=== PATIENT | male | born 1990 | race Caucasian/White ===

== ENCOUNTER 2017-03-29 01:20 | Emergency (ER) | payer BC, OTHER ==
[~2017-03-29] VITALS: Ht 188 cm; Wt 96.6 kg
[~2017-03-29 01:20] MED LIST: ACET325T9 PO; DIAZ10TA PO; HYDR-971 PO
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
[2017-03-29 01:53] LABS: BASO # 0.1 x10^3/uL (0.0-0.2); BASO % 1 % (0-3); EOS # 0.3 x10^3/uL (0.0-0.7); EOS % 4 % (0-3); HEMATOCRIT 45.7 % (39.0-53.0); HEMOGLOBIN 15.6 g/dL (13.0-17.5); LYMPH % 34 % (24-48); MEAN CORPUSCULAR HEMOGLOBIN 30 pg (25-35); MEAN CORPUSCULAR HGB CONC 34 g/dL (31-37); MEAN CORPUSCULAR VOLUME 88 fL (79-100); MONO # 0.9 x10^3/uL (0.0-1.1); MONO % 10 % (0-9); NEUT # 4.7 x10^3uL (1.8-7.7); NEUT % 52 % (31-73); PLATELET COUNT 234 x10^3/uL (140-400); RED BLOOD COUNT 5.22 x10^6/uL (4.30-5.70); RED CELL DISTRIBUTION WIDTH 13.6 % (11.5-14.5)
--- NOTE | 2017-03-29 01:56 | EKG ---
[address] [address] Test Date: 2017-03-29 Test Time: 01:45:51 Pat Name: RAMON MARES Department: Room: Gender: M [employer]: : 1990 Requested By: YAEL THORNTON Order Number: [id number] Reading MD: Boo Lang Measurements Intervals [place] Rate: 76 P: 54 SD: 130 QRS: 84 QRSD: 86 T: 16 QT: 364 QTc: 409 Interpretive Statements SINUS RHYTHM NON-SPECIFIC ST/T CHANGES Electronically Signed On 03-29-2017 10:25:10 CDT by Boo Lang
[2017-03-29 02:00] LABS: CALCIUM 8.7 mg/dL (8.5-10.1); CREATININE 1.1 mg/dL (0.7-1.3); GFR 82.2
[2017-03-29] MEDS ORDERED: IV RINGERS SOLUTION,LACTATED 1,000 ML IV SCH (02:00)
[2017-03-29 02:01] LABS: BILIRUBIN,URINE NEG (NEG); CLARITY,URINE CLEAR; COLOR,URINE YELLOW; GLUCOSE,URINE NEG (NEG)
[2017-03-29 02:02] LABS: BACTERIA,URINE 0 /HPF (0-FEW); NITRITE,URINE NEG (NEG); RBC,URINE 0 /HPF (0-2); SQUAMOUS EPITHELIAL CELL,UR FEW /LPF; UROBILINOGEN,URINE 1 mg/dL (0.2 mg/dL); WBC,URINE OCC /HPF (0-4)
[2017-03-29 02:04] LABS: POTASSIUM 2.9 mmol/L (3.5-5.1); SALIC 0.4 mg/dL (2.8-20.0)
[2017-03-29 02:06] LABS: AMPHETAMINE/METHAMPHETAMINE NEG (NEG); BARBITURATES NEG (NEG); BENZODIAZEPINES NEG (NEG); CANNABINOIDS NEG (NEG); COCAINE NEG (NEG); METHADONE NEG (NEG); OPIATES NEG (NEG); PHENCYCLIDINE NEG (NEG)
[2017-03-29 02:26] LABS: ACETAMIN < 2.0 mcg/mL (10-30); ETHANOL < 10 mg/dL (0-10)
[2017-03-29] MEDS ORDERED: POTASSIUM CHLORIDE 20 MEQ/15 ML ORAL LIQUID. PO ONE (02:30)
[2017-03-29] MEDS ORDERED: lamoTRIgine 25 MG TABLET. ONE (06:22)
[2017-03-29] MEDS ORDERED: lamoTRIgine 25 MG TABLET. PO ONE (07:00)
[2017-03-29 08:44] VITALS: BP 127/67
--- NOTE | 2017-03-29 09:07 | RAD ---
Right hand, 3 views, 03/29/2017: History: Abrasions, pain No fracture or dislocation is identified. IMPRESSION: No acute bony abnormality is detected.
[2017-03-29] MEDS ORDERED: LORazepam 1 MG TABLET PO ONE (09:45)
[2017-03-29] MEDS ORDERED: POTASSIUM CHLORIDE 20 MEQ/15 ML ORAL LIQUID. PEG ONE (09:45)
== END 2017-03-29 09:40 ==
LOC: ER 01:20
DX: F32.9 Major depressive disorder, single episode, unspecified (principal); R45.851 Suicidal ideations; E87.6 Hypokalemia; S60.221A Contusion of right hand, initial encounter; X58.XXXA Exposure to other specified factors, initial encounter; Y93.89 Activity, other specified; Y99.8 Other external cause status; Y92.89 Other specified places as the place of occurrence of the external cause
CPT/HCPCS: 36415; 73130; 80048; 80307; 81001; 83735; 84484; 85025; 85610; 85730; 93005; 96360; 96361; 99285; G0480; J7120; G0479

== ENCOUNTER 2019-01-04 04:26 | Emergency (ER) | payer OTHER, BC ==
[~2019-01-04] VITALS: Ht 188 cm; Wt 107.0 kg
[~2019-01-04 04:26] MED LIST changes: +HYDR-3165 PO; -HYDR-971 PO
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
[2019-01-04] MEDS ORDERED: BACI1PAC16 TP (04:53)
[2019-01-04] MEDS ORDERED: AMOX1TAB61 PO (04:53)
[2019-01-04] MEDS ORDERED: TETANUS AND DIPHTHERIA TOX/PF 0.5 ML VIAL. VAX IM ONE (05:30)
[2019-01-04] MEDS ORDERED: BACITRACIN ZINC TOPICAL OINT PACKET. TP ONE (05:30)
[2019-01-04] MEDS ORDERED: IV NORMAL SALINE 50ML 50 ML ONE (05:33)
[2019-01-04] MEDS ORDERED: cefTRIAXone SODIUM 1 GM VIAL ONE (05:33)
[2019-01-04 05:38] LABS: BASO # 0.1 x10^3/uL (0.0-0.2); BASO % 1 % (0-3); EOS # 0.5 x10^3/uL (0.0-0.7); EOS % 5 % (0-3); HEMATOCRIT 44.5 % (39.0-53.0); HEMOGLOBIN 15.2 g/dL (13.0-17.5); LYMPH # 1.9 x10^3/uL (1.0-4.8); LYMPH % 19 % (24-48); MEAN CORPUSCULAR HEMOGLOBIN 30 pg (25-35); MEAN CORPUSCULAR HGB CONC 34 g/dL (31-37); MEAN CORPUSCULAR VOLUME 88 fL (79-100); MONO # 0.7 x10^3/uL (0.0-1.1); MONO % 7 % (0-9); NEUT # 6.8 x10^3uL (1.8-7.7); NEUT % 69 % (31-73); PLATELET COUNT 246 x10^3/uL (140-400); RED BLOOD COUNT 5.06 x10^6/uL (4.30-5.70); RED CELL DISTRIBUTION WIDTH 14.2 % (11.5-14.5)
[2019-01-04 05:47] LABS: ALBUMIN 3.9 g/dL (3.4-5.0); ALK PHOS 99 U/L (46-116); ALT (SGPT) 44 U/L (16-63); ANION GAP 9 (6-14); AST (SGOT) 33 U/L (15-37); BLOOD UREA NITROGEN 14 mg/dL (8-26); CARBON DIOXIDE 27 mmol/L (21-32); CHLORIDE 105 mmol/L (98-107); CREATININE 1.1 mg/dL (0.7-1.3); DIRECT BILIRUBIN < 0.1 mg/dL (0.0-0.2); GFR 80.9; GLUCOSE 104 mg/dL (70-99); POTASSIUM 3.9 mmol/L (3.5-5.1); SODIUM 141 mmol/L (136-145); TOTAL BILIRUBIN 0.3 mg/dL (0.2-1.0); TOTAL PROTEIN 7.2 g/dL (6.4-8.2)
[2019-01-04 06:14] VITALS: BP 140/80
== END 2019-01-04 06:00 | disposition home or self-care (01) ==
LOC: ER 04:26
DX: S61.512A Laceration without foreign body of left wrist, initial encounter (principal); Z77.21 Contact with and (suspected) exposure to potentially hazardous body fluids; F32.9 Major depressive disorder, single episode, unspecified; Y04.1XXA Assault by human bite, initial encounter; Y93.89 Activity, other specified; Y92.143 Cell of prison as the place of occurrence of the external cause; Y99.8 Other external cause status
CPT/HCPCS: 36415; 80048; 80076; 82550; 85025; 85610; 85730; 86592; 86703; 86705; 86709; 86803; 87340; 90471; 90714; 96374; 99284; J0696

== ENCOUNTER 2019-01-06 19:12 | Emergency (ER) | payer OTHER, BC ==
[~2019-01-06] VITALS: Ht 188 cm; Wt 104.3 kg
[~2019-01-06 19:12] MED LIST changes: +AMOX1TAB61 PO; +BACI1PAC16 TP
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
[2019-01-06 19:25] VITALS: BP 147/82
== END 2019-01-06 19:48 | disposition home or self-care (01) ==
LOC: ER 19:12
DX: S61.512D Laceration without foreign body of left wrist, subsequent encounter (principal); F32.9 Major depressive disorder, single episode, unspecified; W50.3XXD Accidental bite by another person, subsequent encounter
CPT/HCPCS: 99282

== ENCOUNTER 2019-10-26 22:40 | Emergency (ER) | payer BC, OTHER ==
[~2019-10-26] VITALS: Ht 188 cm; Wt 103.7 kg
--- NOTE | 2019-10-26 22:49 | PHYS DOC ---
Past History Past Medical History: No Pertinent History, Depression, GERD Past Surgical History: No Surgical History Smoking: Cigarettes Alcohol Use: None Drug Use: None Adult General Chief Complaint Chief Complaint: ABDOMINAL PAIN.>.." I had this bad burning in my stomach tonight.. it 's been going on for a while.. 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 Patient states pain is usually worse at night when he lays down. Patient does smoke tobacco. Has not taken excessive NSAIDs. No recent travel outside the [place] area. Has been exposed to his girlfriend who has a viral infection. Patient denies any intake of bad food. History immunosuppression. No history of trauma. Review of Systems Review of Systems Constitutional: Denies fever or chills [] Eyes: Denies change in visual acuity, redness, or eye pain [] HENT: Denies nasal congestion or sore throat [] Respiratory: Denies cough or shortness of breath [] Cardiovascular: No additional information not addressed in HPI [] GI: Complaints of severe epigastric abdominal pain, nausea. Patient denies, vomiting, bloody stools or diarrhea [] : Denies dysuria or hematuria [] Musculoskeletal: Denies back pain or joint pain [] Integument: Denies rash or skin lesions [] Neurologic: Denies headache, focal weakness or sensory changes [] Endocrine: Denies polyuria or polydipsia [] All other systems were reviewed and found to be within normal limits, except as documented in this note. Family History Family History Noncontributory Current Medications Current Medications See nursing for home meds Allergies Allergies Allergies Coded Allergies Type Severity Reaction Last Updated Verified No Known Drug Allergies 05/08/16 No Physical Exam Physical Exam Constitutional: Well developed, well nourished, moderate acute distress, non- toxic appearance. [] HENT: Normocephalic, atraumatic, bilateral external ears normal, oropharynx moist, no oral exudates, nose normal. [] Eyes: PERRLA, EOMI, conjunctiva normal, no discharge. [] Neck: Normal range of motion, no tenderness, supple, no stridor. [] Cardiovascular:Heart rate regular rhythm, no murmur [] Lungs & Thorax: Bilateral breath sounds are apex with scattered wheezes auscultation [] Abdomen: Bowel sounds normal, soft, epigastric and right upper quadrant tenderness, no masses, no pulsatile masses. Patient denies tarry or dark stools. Patient declines rectal exam at this time. Rebound to right upper quadrant Skin: Warm, dry, no erythema, no rash. [] Back: No tenderness, no CVA tenderness. [] Extremities: No tenderness, no cyanosis, no clubbing, ROM intact, no edema. [No psoas sign. Neurologic: Alert and oriented X 3, normal motor function, normal sensory f unction, no focal deficits noted. [] Psychologic: Affect anxious, judgement normal, mood normal. [] EKG EKG [] Radiology/Procedures Radiology/Procedures [] IMAGING REPORT Signed PATIENT: RAMON MARES ACCOUNT: [id number] : 1990 LOCATION: ER AGE: 29 SEX: M EXAM STATUS: REG ER ORD. PHYSICIAN: YAEL THORNTON MD REASON: Epigastric abdominal pain x 1 week PROCEDURE: ACUTE ABDOMEN SERIES INDICATION: Epigastric pain COMPARISON: None. IMPRESSION: 5 views of the chest and abdomen obtained. No focal airspace consolidation or pulmonary edema. Cardiac silhouette is unremarkable. Air scattered throughout large and small bowel in a nonspecific but not grossly obstructive pattern. Electronically signed by: Ashok Abdul MD (10/26/2019 11:22 PM) [id number] DICTATED AND SIGNED BY: ASHOK ABDUL MD DATE: 10/26/19 2322 CC: YAEL THORNTON MD; [facility] [employer] ~ Course & Med Decision Making Course & Med Decision Making Pertinent Labs and Imaging studies reviewed. (See chart for details) Patient stay on a clear fluid diet only for the next 2 days. No solids. No milk products. Must allow bowel rest. Clear fluids only. Take Pepcid 20 mg a day. Take Carafate 1 g 4 times a day. Continue efforts to quit smoking. Follow-up primary care. Consider EGD to evaluate for reflux, gastritis due to duodenitis. Return if any concerns. He may have a component of viral illness. Avoid NSAIDs. Follow CDC for up to date information on Covid19. [] Impression: 1. Abdomen pain 2. Suspect gastritis/duodenitis 3. Viral illness 4. Tobacco use Dragon Disclaimer Dragon Disclaimer This electronic medical record was generated, in whole or in part, using a voice recognition dictation system. Departure Departure: Disposition: HOME/RESIDENCE PRIOR TO ADM Condition: STABLE Referrals: [facility] [employer] [facility] [facility] (PCP) Scripts Sucralfate (CARAFATE) 1 Gm Tablet 1 GM PO 4 times a day for gastritis, #120 TAB Prov: YAEL THORNTON MD 10/27/19 Famotidine (PEPCID) 20 Mg Tablet 20 MG PO DAILY for gastritis, #30 TAB Prov: YAEL THORNTON MD 10/27/19 Lloyd Disclaimer This chart was dictated in whole or in part using Voice Recognition software in a busy, high-work load, and often noisy Emergency Department environment. It may contain unintended and wholly unrecognized errors or omissions. YAEL THORNTON MD Oct 26, 2019 22:48
[2019-10-26 22:56] VITALS: BP 143/94
[2019-10-26] MEDS ORDERED: IV RINGERS SOLUTION,LACTATED 1,000 ML IV SCH (23:00)
[2019-10-26] MEDS ORDERED: ONDANSETRON PF 4 MG/2 ML VIAL. IVP ONE (23:00)
[2019-10-26] MEDS ORDERED: FAMOTIDINE 20 MG/2 ML VIAL IVP ONE (23:00)
[2019-10-26] MEDS ORDERED: MAGNESIUM HYDROXIDE 2,400 MG/30 ML ORAL.SUSP. PO ONE (23:15)
[2019-10-26] MEDS ORDERED: SUCRALFATE 1 GM TABLET. PO ONE (23:15)
--- NOTE | 2019-10-26 23:25 | RAD ---
INDICATION: Epigastric pain COMPARISON: None. IMPRESSION: 5 views of the chest and abdomen obtained. No focal airspace consolidation or pulmonary edema. Cardiac silhouette is unremarkable. Air scattered throughout large and small bowel in a nonspecific but not grossly obstructive pattern. Electronically signed by: Ashok Brito MD (10/26/2019 11:22 PM) [id number]
[2019-10-27 00:06] LABS: CALCIUM 8.8 mg/dL (8.5-10.1); GFR 89.6; POTASSIUM 3.9 mmol/L (3.5-5.1)
[2019-10-27 00:07] LABS: BASO # 0.1 x10^3/uL (0.0-0.2); BASO % 1 % (0-3); EOS # 0.5 x10^3/uL (0.0-0.7); EOS % 5 % (0-3); HEMOGLOBIN 15.6 g/dL (13.0-17.5); LYMPH # 3.1 x10^3/uL (1.0-4.8); LYMPH % 31 % (24-48); MEAN CORPUSCULAR HEMOGLOBIN 30 pg (25-35); MEAN CORPUSCULAR HGB CONC 34 g/dL (31-37); MEAN CORPUSCULAR VOLUME 89 fL (79-100); MONO # 0.6 x10^3/uL (0.0-1.1); MONO % 6 % (0-9); NEUT # 5.8 x10^3uL (1.8-7.7); NEUT % 58 % (31-73); PLATELET COUNT 257 x10^3/uL (140-400); RED BLOOD COUNT 5.19 x10^6/uL (4.30-5.70); RED CELL DISTRIBUTION WIDTH 14.8 % (11.5-14.5)
[2019-10-27 00:11] LABS: ALBUMIN 4.2 g/dL (3.4-5.0); DIRECT BILIRUBIN 0.1 mg/dL (0.0-0.2); TOTAL BILIRUBIN 0.4 mg/dL (0.2-1.0); TOTAL PROTEIN 7.5 g/dL (6.4-8.2)
[2019-10-27 00:17] LABS: INFLUENZA A PATIENT NEGATIVE (NEGATIVE); INFLUENZA B PATIENT NEGATIVE (NEGATIVE)
[2019-10-27 00:59] LABS: BARBITURATES NEG (NEG); BENZODIAZEPINES NEG (NEG); CANNABINOIDS NEG (NEG); COCAINE NEG (NEG); METHADONE NEG (NEG); OPIATES NEG (NEG); PHENCYCLIDINE NEG (NEG)
[2019-10-27 01:00] LABS: AMPHETAMINE/METHAMPHETAMINE NEG (NEG)
[2019-10-27 01:05] LABS: BILIRUBIN,URINE NEG (NEG); CLARITY,URINE CLEAR; COLOR,URINE STRAW; GLUCOSE,URINE NEG (NEG)
[2019-10-27 01:06] LABS: BACTERIA,URINE FEW /HPF (0-FEW); NITRITE,URINE NEG (NEG); RBC,URINE 0 /HPF (0-2); SQUAMOUS EPITHELIAL CELL,UR OCC /LPF; UROBILINOGEN,URINE 0.2 mg/dL (0.2 mg/dL); WBC,URINE 0 /HPF (0-4)
[2019-10-27] MEDS ORDERED: FAMO-63 PO (01:11)
[2019-10-27] MEDS ORDERED: SUCR1TAB35 PO (01:11)
== END 2019-10-27 01:18 | disposition home or self-care (01) ==
LOC: ER 22:40
DX: R10.13 Epigastric pain (principal); R10.11 Right upper quadrant pain; B34.9 Viral infection, unspecified; F17.210 Nicotine dependence, cigarettes, uncomplicated; K21.9 Gastro-esophageal reflux disease without esophagitis
CPT/HCPCS: 36415; 74022; 80048; 80076; 80307; 81001; 82150; 82550; 83690; 84484; 85025; 85610; 85730; 87070; 87804; 87880; 96374; 99284; J3490; J7120

== ENCOUNTER 2020-11-28 11:28 | Emergency (ER) | payer BC ==
[~2020-11-28] VITALS: Ht 188 cm; Wt 108.5 kg
[~2020-11-28 11:28] MED LIST changes: +FAMO-63 PO; +SUCR1TAB35 PO
[2020-11-28] MEDS ORDERED: ONDANSETRON PF 4 MG/2 ML VIAL. ONE (11:37)
[2020-11-28] MEDS ORDERED: ONDANSETRON PF 4 MG/2 ML VIAL. IVP ONE (12:00)
[2020-11-28] MEDS ORDERED: PANTOPRAZOLE IV 40 MG VIAL. IVP ONE (12:00)
[2020-11-28] MEDS ORDERED: MORPHINE SULFATE 4 MG/ML DISP.SYRIN. IV ONE (12:00)
[2020-11-28] MEDS ORDERED: IV NORMAL SALINE 1,000ML 1,000 ML IV ONE (12:00)
--- NOTE | 2020-11-28 12:07 | PHYS DOC ---
Past History Past Medical History: No Pertinent History Past Surgical History: No Surgical History Smoking: Cigarettes Alcohol Use: None Drug Use: None General Adult EDM: Chief Complaint: ABDOMINAL PAIN HPI: HPI: 30-year-old male presents with sudden onset epigastric abdominal pain. The patient was just sitting at home around 1015 when he began to have a sharp pain in the epigastric area. Pain rapidly increased to 8 out of 10. It is currently 8 out of 10. He denies any falls or trauma. He does have a history of gastritis and GI ulcers in the past. He manages his acid reflux with Pepcid. Patient denies any unusual foods or exposures. He has no history of pancreatitis. He had one soft stool, but not diarrhea. He denies drinking any alcohol. Denies fever or chills. Review of Systems: Review of Systems: Constitutional: Denies fever or chills Eyes: Denies change in visual acuity HENT: Denies nasal congestion or sore throat Respiratory: Denies cough or shortness of breath Cardiovascular: Denies chest pain or edema GI: Epigastric abdominal pain, nausea, vomiting. Denies bloody stools or diarrhea : Denies dysuria Musculoskeletal: Denies back pain or joint pain Integument: Denies rash Neurologic: Denies headache, focal weakness or sensory changes Endocrine: Denies polyuria or polydipsia Lymphatic: Denies swollen glands Psychiatric: Denies depression or anxiety Current Medications: Current Meds: Current Medications Medications (Trade) Dose Ordered Sig/Shadi Start Time Stop Time Status Last Admin Dose Admin Morphine Sulfate (Morphine 4mg Syringe) 4 mg 1X ONCE 11/28/20 12:00 11/28/20 12:01 UNV Ondansetron HCl (Zofran) 4 mg 1X ONCE 11/28/20 12:00 11/28/20 12:01 UNV Pantoprazole Sodium (Protonix Vial) 40 mg 1X ONCE 11/28/20 12:00 11/28/20 12:01 UNV Sodium Chloride 1,000 ml @ 1,000 mls/hr 1X ONCE 11/28/20 12:00 11/28/20 12:59 UNV 11/28/20 12:00 1,000 MLS/HR Allergies: Allergies: Allergies Coded Allergies Type Severity Reaction Last Updated Verified No Known Drug Allergies 05/08/16 No Physical Exam: PE: Constitutional: Well developed, well nourished, mild acute distress, vomiting. [] HENT: Normocephalic, atraumatic, bilateral external ears normal, oropharynx moist, no oral exudates, nose normal. [] Eyes: PERRLA, EOMI, conjunctiva normal, no discharge. [] Neck: Normal range of motion, no tenderness, supple, no stridor. [] Cardiovascular: Heart rate regular rhythm, no murmur [] Lungs & Thorax: Bilateral breath sounds clear to auscultation [] Abdomen: Bowel sounds normal, soft, moderate epigastric tenderness, no masses, no pulsatile masses. [] Skin: Warm, dry, no erythema, no rash. [] Back: No tenderness, no CVA tenderness. [] Extremities: No tenderness, no cyanosis, no clubbing, ROM intact, no edema. [] Neurologic: Alert and oriented X 3, normal motor function, normal sensory function, no focal deficits noted. [] Psychologic: Affect normal, judgement normal, mood normal. [] Current Patient Data: Vital Signs: Vital Signs Date Time Temp Pulse Resp B/P (MAP) Pulse Ox O2 Delivery O2 Flow Rate FiO2 11/28/20 11:50 97.8 97 16 152/100 (117) 98 Room Air EKG: EKG: [] Radiology/Procedures: Radiology/Procedures: [] Impressions: Exam: CT abdomen/pelvis with intravenous contrast Indication: Epigastric pain Comparison: Abdominal radiograph 10/26/2019 Technique: Helical CT imaging performed of the abdomen and pelvis after the administration of intravenous contrast. Sagittal and coronal reformats were obtained. One or more of the following individualized dose reduction techniques were utilized for this examination: 1. Automated exposure control 2. Adjustment of the mA and/or kV according to patient size 3. Use of iterative reconstruction technique. Findings: Lower chest: Lung bases are clear and heart is normal in size. Liver: Liver is mildly enlarged measuring 20 cm craniocaudally. Normal hepatic a ttenuation. Gallbladder/Biliary Tree: Normal. Pancreas: Normal. Spleen: Normal. Adrenal Glands: Normal. Kidneys/Ureters/Bladder: Kidneys, ureters, and bladder are normal. Reproductive Organs: Normal. Stomach, small bowel, and colon: Small hiatal hernia. No small bowel obstruction. There is focal wall thickening in the distal transverse colon and (image 34, series 2). Additional scattered areas of wall thickening suspected in the proximal transverse colon (image [id number]), and possibly in the ascending and descending colon. Appendix is normal. Vasculature: No aortic aneurysm. Lymph Nodes: No lymphadenopathy. Peritoneum and retroperitoneum: No free fluid or free air. Bones: No acute osseous abnormality. Impression: 1. No definite acute abnormality. 2. Focal wall thickening in the distal transverse colon and several other possible areas of wall thickening in the colon could be due to incomplete distention or redundancy of bowel, or potentially colitis. Underlying mass in the transverse colon cannot be excluded. 3. Small hiatal hernia. 4. Mild hepatomegaly. Electronically signed by: Lizbeth Jefferson MD (11/28/2020 12:56 PM) [id number] DICTATED AND SIGNED BY: LIZBETH JEFFERSON MD DATE: 11/28/20 1238 CC: VENKAT GAONA DO; SUSHMA BUSTILLOS PA ~MTH0 0 Heart Score: C/O Chest Pain: No Risk Factors: Risk Factors: DM, Current or recent (<one month) smoker, HTN, HLP, family history of CAD, obesity. Risk Scores: Score 0 - 3: 2.5% MACE over next 6 weeks - Discharge Home Score 4 - 6: 20.3% MACE over next 6 weeks - Admit for Clinical Observation Score 7 - 10: 72.7% MACE over next 6 weeks - Early Invasive Strategies Course & Med Decision Making: Course & Med Decision Making Pertinent Labs and Imaging studies reviewed. (See chart for details) The patient has been given 1 L normal saline, 8 mg of Zofran, 10 mg Compazine. His vomiting is now controlled. The patient's labs are unremarkable. His CT of the abdomen and pelvis does not show definitive finding, but there is wall thickening of various areas of the colon. This could be colitis but underlying mass cannot be excluded. See official read for details. I have made the patient aware of this. I recommended that he follow-up on this finding with his primary care physician. I will discharge him with a prescription for Zofran ODT. [] Lloyd Disclaimer: Lloyd Disclaimer: This electronic medical record was generated, in whole or in part, using a voice recognition dictation system. Departure Departure: Impression: Primary Impression: Viral gastritis Additional Impressions: Epigastric abdominal pain Colitis Disposition: HOME / SELF CARE / HOMELESS Condition: STABLE Referrals: TRESSA,SUSHMA M PA (PCP) Patient Instructions: Colitis, Nausea and Vomiting, [id number] Scripts Ondansetron (ONDANSETRON ODT) 4 Mg Tab.rapdis 1-2 TAB PO Q8HRS PRN for VOMITING, #16 TAB Prov: VENKAT GAONA DO 11/28/20 VENKAT GAONA DO November 28, 2020 12:07
[2020-11-28 12:15] LABS: BASO % 1 % (0-3); EOS # 0.5 x10^3/uL (0.0-0.7); EOS % 6 % (0-3); HEMATOCRIT 44.6 % (39.0-53.0); HEMOGLOBIN 15.1 g/dL (13.0-17.5); LYMPH # 3.4 x10^3/uL (1.0-4.8); LYMPH % 39 % (24-48); MEAN CORPUSCULAR HEMOGLOBIN 30 pg (25-35); MEAN CORPUSCULAR HGB CONC 34 g/dL (31-37); MEAN CORPUSCULAR VOLUME 89 fL (79-100); MONO # 0.7 x10^3/uL (0.0-1.1); MONO % 8 % (0-9); NEUT # 4.2 x10^3uL (1.8-7.7); NEUT % 47 % (31-73); PLATELET COUNT 241 x10^3/uL (140-400); RED BLOOD COUNT 5.04 x10^6/uL (4.30-5.70); WHITE BLOOD COUNT 8.8 x10^3/uL (4.0-11.0)
[2020-11-28] MEDS ORDERED: IOHEXOL 300 MG/ML 75 ML VIAL. IV ONE (12:15)
[2020-11-28] MEDS ORDERED: PROCHLORPERAZINE 10 MG/2 ML VIAL. IV ONE (12:15)
[2020-11-28 12:28] LABS: CALCIUM 8.9 mg/dL (8.5-10.1); CREATININE 1.1 mg/dL (0.7-1.3); GFR 79.7; POTASSIUM 3.5 mmol/L (3.5-5.1)
[2020-11-28 12:35] LABS: ALBUMIN 4.1 g/dL (3.4-5.0); ALBUMIN/GLOBULIN RATIO 1.1 (1.0-1.7); TOTAL BILIRUBIN 0.3 mg/dL (0.2-1.0); TOTAL PROTEIN 7.8 g/dL (6.4-8.2)
--- NOTE | 2020-11-28 12:59 | RAD ---
Exam: CT abdomen/pelvis with intravenous contrast Indication: Epigastric pain Comparison: Abdominal radiograph 10/26/2019 Technique: Helical CT imaging performed of the abdomen and pelvis after the administration of intrave nous contrast. Sagittal and coronal reformats were obtained. One or more of the following individualized dose reduction techniques were utilized for this examinat ion: 1. Automated exposure control 2. Adjustment of the mA and/or kV according to patient size 3. Use of iterative reconstruction technique. Findings: Lower chest: Lung bases are clear and heart is normal in size. Liver: Liver is mildly enlarged measuring 20 cm craniocaudally. Normal hepatic attenuation. Gallbladder/Biliary Tree: Normal. Pancreas: Normal. Spleen: Normal. Adrenal Glands: Normal. Kidneys/Ureters/Bladder: Kidneys, ureters, and bladder are normal. Reproductive Organs: Normal. Stomach, small bowel, and colon: Small hiatal hernia. No small bowel obstruction. There is focal wall thickening in the distal transverse colon and (image 34, series 2). Additional scattered areas of wa ll thickening suspected in the proximal transverse colon (image [id number]), and possibly in the ascending and descending colon. Appendix is normal. Vasculature: No aortic aneurysm. Lymph Nodes: No lymphadenopathy. Peritoneum and retroperitoneum: No free fluid or free air. Bones: No acute osseous abnormality. Impression: 1. No definite acute abnormality. 2. Focal wall thickening in the distal transverse colon and several other possible areas of wall thi ckening in the colon could be due to incomplete distention or redundancy of bowel, or potentially col itis. Underlying mass in the transverse colon cannot be excluded. 3. Small hiatal hernia. 4. Mild hepatomegaly. Electronically signed by: Lizbeth Jefferson MD (11/28/2020 12:56 PM) [id number]
[2020-11-28] MEDS ORDERED: ONDA4TAB12 PO (13:24)
[2020-11-28 13:53] VITALS: BP 148/70
== END 2020-11-28 13:52 | disposition home or self-care (01) ==
LOC: ER 11:28
DX: A08.4 Viral intestinal infection, unspecified (principal); K52.9 Noninfective gastroenteritis and colitis, unspecified
CPT/HCPCS: 36415; 74177; 80053; 83690; 85025; 96361; 96374; 96375; 99285; C9113; J0780; J2270; J2405; J7030; Q9967